=== PATIENT | male | born 1955 ===

== ENCOUNTER 2022-05-06 05:21 | Inpatient (IN) ==
[2022-04-30 12:14] LABS: Basophils % 0.3 % (0.0-0.8); Eosinophils % 0.6 % (0.00-10.9); Hemoglobin 12.2 GM/DL (14.0-18.0); Immature Granulocytes % 1.1 %; Immature Granulocytes Absolute 0.07 #; Lymphocytes # 1.2 10*3/uL (1.4-4.0); Lymphocytes % 18.3 % (21.2-54.2); Mean Corpuscular HGB Conc 33.9 GM/DL (32-36); Mean Corpuscular Volume 93.5 FL (87-102); Mean Platelet Volume 11.1 FL (9.6-12.0); Monocytes # 0.6 10*3/uL (0.11-0.8); Monocytes % 8.5 % (1.7-12.7); Neutrophils % 71.2 % (38.7-73.9); Platelet Count 174 T/CUMM (130-400); Red Blood Count 3.85 MC/CUMM (3.8-5.5); Red Cell Distribution Width 13.9 % (9.3-17.3); White Blood Count 6.44 T/CUMM (4-12)
[2022-04-30 12:30] LABS: Albumin 3.4 G/DL (3.4-5.0); Bilirubin,Total 0.5 MG/DL (0.20-1.00); Calcium 9.2 MG/DL (8.5-10.1); Osmolality,Calculated 279.7 MOS/KG (273-304); Potassium 4.1 MMOL/L (3.5-5.1); Total Protein 7.7 G/DL (6.4-8.2)
[2022-05-06] MEDS: LACTATED RINGERS 1,000 ML IV SCH ×2 (06:18→09:31)
[2022-05-06] MEDS ORDERED: cefTRIAXone 1,000 MG in SODIUM CHLORIDE 0.9% 100 ML IV ONE (06:30)
[2022-05-06] MEDS ORDERED: ALVIMOPAN 12 MG CAPSULE PO ONE (06:30)
[2022-05-06] MEDS ORDERED: ROPIVACAINE 0.5% 30 ML VIAL ONE (06:34)
[2022-05-06 06:39] LABS: INR 0.9; PT Patient Result 10.3 SECS (10.1-12.1); Partial Thromboplastin Time 23.1 SECS (23.7-32.9)
[2022-05-06] MEDS ORDERED: FAMOTIDINE 20 MG TABLET PO ONE (06:41)
[2022-05-06] MEDS ORDERED: buprenorphine HCL 0.3 MG/ML VIAL ONE (06:53)
[2022-05-06] MEDS ORDERED: fentaNYL 100 MCG/2 ML VIAL ONE (06:59)
[2022-05-06] MEDS ORDERED: MIDAZOLAM 2 MG/2 ML VIAL ONE (06:59)
[2022-05-06] MEDS ORDERED: LACTATED RINGERS 1,000 ML IV SCH (07:00)
[2022-05-06] MEDS ORDERED: ePHEDrine 50 MG/ML VIAL ONE (07:58)
[2022-05-06] MEDS ORDERED: propofoL 200 MG/20 ML VIAL IV ONE (08:28)
[2022-05-06] MEDS ORDERED: SEVOFLURANE 1 UNIT/15 MINUTE INH ONE ×14 (08:28→12:31)
[2022-05-06] MEDS ORDERED: GLYCOPYRROLATE 0.4 MG/2 ML VIAL ONE ×2 (08:28→11:38)
[2022-05-06] MEDS ORDERED: ROCURONIUM 50 MG/5 ML VIAL IV ONE (08:28)
[2022-05-06] MEDS ORDERED: LIDOCAINE 2% 5 ML VIAL ONE (08:28)
[2022-05-06] MEDS ORDERED: ONDANSETRON 4 MG/2 ML VIAL ONE (11:33)
[2022-05-06] MEDS ORDERED: LACTATED RINGERS 1,000 ML IV ONE (11:35)
[2022-05-06] MEDS ORDERED: NEOSTIGMINE 10 MG/10 ML VIAL ONE (11:38)
[2022-05-06] MEDS ORDERED: oxyCODONE/ACETAMINOPHEN 5-325 MG TABLET PO PRN (11:48)
[2022-05-06] MEDS ORDERED: PROMETHAZINE 25 MG/1 ML VIAL IM PRN (11:48)
[2022-05-06] MEDS ORDERED: diphenhydrAMINE 50 MG/1 ML VIAL IV PRN (11:48)
[2022-05-06] MEDS ORDERED: ONDANSETRON 4 MG/2 ML VIAL IV PRN (11:48)
[2022-05-06] MEDS ORDERED: SIMETHICONE CHEW 125 MG TABLET PO PRN (11:48)
[2022-05-06] MEDS ORDERED: LACTULOSE 20 GM/30 ML UDCUP PO PRN (11:48)
[2022-05-06] MEDS ORDERED: ALBUTEROL 2.5 MG/3 ML NEB RESP TX PRN (11:51)
[2022-05-06] MEDS ORDERED: PHENYLEPHRINE DRIP 20 MG/250 ML PREMIX IV ONE (12:52)
[2022-05-06 13:33] LABS: Basophils % 0.2 % (0.0-0.8); Eosinophils % 0.1 % (0.00-10.9); Hematocrit 36.8 VOL% (42.0-52.0); Hemoglobin 11.6 GM/DL (14.0-18.0); Immature Granulocytes % 0.4 %; Immature Granulocytes Absolute 0.04 #; Lymphocytes # 1.4 10*3/uL (1.4-4.0); Lymphocytes % 12.7 % (21.2-54.2); Mean Corpuscular HGB Conc 31.5 GM/DL (32-36); Mean Corpuscular Volume 97.1 FL (87-102); Mean Platelet Volume 11.2 FL (9.6-12.0); Monocytes # 0.6 10*3/uL (0.11-0.8); Monocytes % 5.7 % (1.7-12.7); Neutrophils % 80.9 % (38.7-73.9); Platelet Count 67 T/CUMM (130-400); Red Blood Count 3.79 MC/CUMM (3.8-5.5); White Blood Count 11.14 T/CUMM (4-12)
[2022-05-06 13:49] LABS: Mucus,Urine Occasional /LPF (Occasional); RBC,Urine 34 /HPF (0-4); Squamous Epithelial Cell,Urine Occasional /HPF (0-10)
[2022-05-06 13:51] LABS: Bilirubin,Urine Negative (Negative); Blood, Urine Small mg/dL (Negative); Glucose,Urine (UA) Negative (Negative); Ketones,Urine Negative (Negative); Nitrite,Urine Negative (Negative); Protein,Urine Trace mg/dL (Negative); Urine Appearance Clear (Clear); Urine Color Yellow (Yellow); Urine Urobilinogen 0.2 eU/dL (<2.0)
[2022-05-06 13:55] LABS: Calcium 8.8 MG/DL (8.5-10.1); Potassium 4.1 MMOL/L (3.5-5.1)
[2022-05-06] MEDS: HYDROmorphone 1 MG/1 ML SYRINGE IV PRN (14:01)
[2022-05-06] MEDS: SODIUM CHLORIDE 0.9% 1,000 ML IV SCH ×2 (14:02→22:01)
[2022-05-06] MEDS: ACETAMINOPHEN 325 MG TABLET PO SCH ×2 (14:03→17:53)
[2022-05-06] MEDS: OXYBUTYNIN 5 MG TABLET PO SCH ×2 (15:59→21:59)
[2022-05-06] MEDS ORDERED: LORazepam 2 MG/1 ML VIAL IV PRN (16:04)
[2022-05-06] MEDS: ALBUTEROL/IPRATROPIUM 3 ML NEB RESP TX SCH ×2 (19:38→20:57)
[2022-05-06] MEDS: FAMOTIDINE 20 MG TABLET PO SCH (21:59)
[2022-05-06] MEDS: ALVIMOPAN 12 MG CAPSULE PO SCH (21:59)
[2022-05-06] MEDS: DOCUSATE SODIUM 100 MG CAPSULE PO SCH (21:59)
[2022-05-07] MEDS: ALBUTEROL/IPRATROPIUM 3 ML NEB RESP TX SCH ×4 (00:47→18:50)
[2022-05-07] MEDS: ACETAMINOPHEN 325 MG TABLET PO SCH ×5 (01:21→23:44)
[2022-05-07 05:28] LABS: Basophils % 0.3 % (0.0-0.8); Eosinophils # 0.1 10*3/uL (0.0-0.87); Eosinophils % 0.7 % (0.00-10.9); Hematocrit 30.6 VOL% (42.0-52.0); Hemoglobin 9.8 GM/DL (14.0-18.0); Immature Granulocytes % 0.4 %; Immature Granulocytes Absolute 0.03 #; Lymphocytes # 1.6 10*3/uL (1.4-4.0); Lymphocytes % 21.8 % (21.2-54.2); Mean Corpuscular Volume 99.4 FL (87-102); Mean Platelet Volume 10.1 FL (9.6-12.0); Monocytes # 0.7 10*3/uL (0.11-0.8); Monocytes % 9.2 % (1.7-12.7); Neutrophils % 67.6 % (38.7-73.9); Platelet Count 145 T/CUMM (130-400); Red Blood Count 3.08 MC/CUMM (3.8-5.5); Red Cell Distribution Width 14.3 % (9.3-17.3); White Blood Count 7.46 T/CUMM (4-12)
[2022-05-07 05:46] LABS: Calcium 8.1 MG/DL (8.5-10.1); Osmolality,Calculated 275.7 MOS/KG (273-304); Potassium 3.8 MMOL/L (3.5-5.1)
[2022-05-07 05:52] LABS: Folate 15.62 NG/ML (5.38-24.0); Vitamin B12 804 PG/ML (211-911)
[2022-05-07 05:58] LABS: Albumin 2.8 G/DL (3.4-5.0); Bilirubin,Direct 0.23 MG/DL (0.0-0.20); Bilirubin,Indirect 0.4 MG/DL (0.0-1.0); Bilirubin,Total 0.6 MG/DL (0.20-1.00); Total Protein 6.7 G/DL (6.4-8.2)
[2022-05-07] MEDS: SODIUM CHLORIDE 0.9% 1,000 ML IV SCH (06:14)
[2022-05-07 06:34] LABS: Hepatitis B Core IgM Quant 0.06 Index; Hepatitis B Surface Ag Quant < 0.10 Index; Hepatitis B Surface Ag Result Non-Reactive (NonReactive); Hepatitis C Virus Ab Quant 0.07 Index; Hepatitis C Virus Ab Result Non-Reactive (NonReactive)
[2022-05-07 06:43] LABS: Sedimentation Rate-Westergren 65 MM/HR (0-20)
[2022-05-07 07:47] LABS: Hemoglobin A1 (Alkaline) 97.1 % (96.5-98.5); Hemoglobin A2 (Alkaline) 2.9 % (1.5-3.5)
[2022-05-07] MEDS: HYDROmorphone 1 MG/1 ML SYRINGE IV PRN ×2 (07:59→13:33)
[2022-05-07] MEDS: ALVIMOPAN 12 MG CAPSULE PO SCH ×2 (08:00→22:02)
[2022-05-07] MEDS: MULTIVITAMIN (CENTRUM) TABLET PO SCH (08:00)
[2022-05-07] MEDS: DOCUSATE SODIUM 100 MG CAPSULE PO SCH ×2 (08:00→22:01)
[2022-05-07] MEDS: FLUTICASONE 50 MCG NASAL SPRAY 16 GM BOTTLE BOTH NARES SCH (08:00)
[2022-05-07] MEDS: cefTRIAXone 1,000 MG in SODIUM CHLORIDE 0.9% 100 ML IV SCH (08:00)
[2022-05-07] MEDS: OXYBUTYNIN 5 MG TABLET PO SCH ×3 (08:01→22:01)
[2022-05-07] MEDS: FOLIC ACID 1 MG TABLET PO SCH (08:01)
[2022-05-07] MEDS: THIAMINE 100 MG TABLET PO SCH (08:01)
[2022-05-07] MEDS: amLODIPine 5 MG TABLET PO SCH (08:01)
[2022-05-07] MEDS: FAMOTIDINE 20 MG TABLET PO SCH ×2 (08:01→22:02)
[2022-05-07] MEDS ORDERED: LACTULOSE 20 GM/30 ML UDCUP PO ONE (09:08)
[2022-05-07] MEDS ORDERED: SIMETHICONE CHEW 125 MG TABLET PO SCH (09:30)
[2022-05-07] MEDS: POLYETHYLENE GLYCOL POWDER 17 GM PACK PO SCH (17:19)
[2022-05-08] MEDS: ACETAMINOPHEN 325 MG TABLET PO SCH ×3 (06:02→18:43)
[2022-05-08 06:13] LABS: Basophils % 0.2 % (0.0-0.8); Eosinophils % 0.2 % (0.00-10.9); Hematocrit 32.5 VOL% (42.0-52.0); Hemoglobin 10.4 GM/DL (14.0-18.0); Immature Granulocytes % 0.3 %; Immature Granulocytes Absolute 0.03 #; Lymphocytes # 1.4 10*3/uL (1.4-4.0); Lymphocytes % 15.4 % (21.2-54.2); Mean Corpuscular Volume 96.7 FL (87-102); Mean Platelet Volume 10.8 FL (9.6-12.0); Monocytes # 0.7 10*3/uL (0.11-0.8); Monocytes % 7.5 % (1.7-12.7); Neutrophils % 76.4 % (38.7-73.9); Platelet Count 164 T/CUMM (130-400); Red Blood Count 3.36 MC/CUMM (3.8-5.5); Red Cell Distribution Width 14.2 % (9.3-17.3); White Blood Count 9.26 T/CUMM (4-12)
[2022-05-08 06:30] LABS: Albumin 2.9 G/DL (3.4-5.0); Bilirubin,Total 0.5 MG/DL (0.20-1.00); Calcium 8.7 MG/DL (8.5-10.1); Osmolality,Calculated 273.8 MOS/KG (273-304); Potassium 4.1 MMOL/L (3.5-5.1); Total Protein 7.3 G/DL (6.4-8.2)
[2022-05-08 06:43] LABS: % Iron Saturation 14.4 % (18-50)
[2022-05-08] MEDS: ALBUTEROL/IPRATROPIUM 3 ML NEB RESP TX SCH ×4 (07:17→19:01)
[2022-05-08] MEDS ORDERED: DEXTROSE 5% NACL 0.45% 1,000 ML IV SCH (07:30)
[2022-05-08] MEDS: FOLIC ACID 1 MG TABLET PO SCH (09:52)
[2022-05-08] MEDS: ALVIMOPAN 12 MG CAPSULE PO SCH ×2 (09:52→21:30)
[2022-05-08] MEDS: THIAMINE 100 MG TABLET PO SCH (09:52)
[2022-05-08] MEDS: OXYBUTYNIN 5 MG TABLET PO SCH ×3 (09:52→21:30)
[2022-05-08] MEDS: POLYETHYLENE GLYCOL POWDER 17 GM PACK PO SCH (09:52)
[2022-05-08] MEDS: amLODIPine 5 MG TABLET PO SCH (09:52)
[2022-05-08] MEDS: MULTIVITAMIN (CENTRUM) TABLET PO SCH (09:52)
[2022-05-08] MEDS: FAMOTIDINE 20 MG TABLET PO SCH ×2 (09:52→21:30)
[2022-05-08] MEDS: cefTRIAXone 1,000 MG in SODIUM CHLORIDE 0.9% 100 ML IV SCH (09:53)
[2022-05-08] MEDS: SODIUM CHLOR 0.45% KCL 20 MEQ 20 MEQ/1,000 ML BAG IV SCH ×2 (09:53→17:41)
[2022-05-08] MEDS: DOCUSATE SODIUM 100 MG CAPSULE PO SCH ×2 (09:54→21:30)
[2022-05-08] MEDS: FLUTICASONE 50 MCG NASAL SPRAY 16 GM BOTTLE BOTH NARES SCH (09:54)
[2022-05-08] MEDS: METOCLOPRAMIDE 10 MG/2 ML VIAL IV SCH ×2 (12:38→17:37)
[2022-05-09] MEDS: ALBUTEROL/IPRATROPIUM 3 ML NEB RESP TX SCH ×3 (00:24→14:00)
[2022-05-09] MEDS: ACETAMINOPHEN 325 MG TABLET PO SCH ×3 (00:40→12:09)
[2022-05-09] MEDS: SODIUM CHLOR 0.45% KCL 20 MEQ 20 MEQ/1,000 ML BAG IV SCH ×2 (00:56→09:33)
[2022-05-09] MEDS: METOCLOPRAMIDE 10 MG/2 ML VIAL IV SCH ×3 (00:57→12:09)
[2022-05-09 05:35] LABS: Basophils % 0.2 % (0.0-0.8); Eosinophils # 0.1 10*3/uL (0.0-0.87); Eosinophils % 1.2 % (0.00-10.9); Hematocrit 27.6 VOL% (42.0-52.0); Hemoglobin 8.8 GM/DL (14.0-18.0); Immature Granulocytes % 0.7 %; Immature Granulocytes Absolute 0.06 #; Lymphocytes # 1.2 10*3/uL (1.4-4.0); Lymphocytes % 14.6 % (21.2-54.2); Mean Corpuscular HGB Conc 31.9 GM/DL (32-36); Mean Corpuscular Volume 96.5 FL (87-102); Mean Platelet Volume 10.2 FL (9.6-12.0); Monocytes # 0.7 10*3/uL (0.11-0.8); Monocytes % 8.7 % (1.7-12.7); Neutrophils % 74.6 % (38.7-73.9); Platelet Count 165 T/CUMM (130-400); Red Blood Count 2.86 MC/CUMM (3.8-5.5); Red Cell Distribution Width 14.4 % (9.3-17.3)
[2022-05-09 05:52] LABS: Albumin 2.4 G/DL (3.4-5.0); Bilirubin,Total 0.5 MG/DL (0.20-1.00); Calcium 8.4 MG/DL (8.5-10.1); Osmolality,Calculated 275.5 MOS/KG (273-304); Total Protein 6.2 G/DL (6.4-8.2)
[2022-05-09] MEDS: cefTRIAXone 1,000 MG in SODIUM CHLORIDE 0.9% 100 ML IV SCH (09:03)
[2022-05-09] MEDS: FAMOTIDINE 20 MG TABLET PO SCH (09:04)
[2022-05-09] MEDS: POLYETHYLENE GLYCOL POWDER 17 GM PACK PO SCH (09:04)
[2022-05-09] MEDS: FOLIC ACID 1 MG TABLET PO SCH (09:04)
[2022-05-09] MEDS: OXYBUTYNIN 5 MG TABLET PO SCH (09:04)
[2022-05-09] MEDS: MULTIVITAMIN (CENTRUM) TABLET PO SCH (09:04)
[2022-05-09] MEDS: ALVIMOPAN 12 MG CAPSULE PO SCH (09:04)
[2022-05-09] MEDS: THIAMINE 100 MG TABLET PO SCH (09:04)
[2022-05-09] MEDS: amLODIPine 5 MG TABLET PO SCH (09:05)
[2022-05-09] MEDS: FLUTICASONE 50 MCG NASAL SPRAY 16 GM BOTTLE BOTH NARES SCH (09:05)
[2022-05-09] MEDS: DOCUSATE SODIUM 100 MG CAPSULE PO SCH (09:05)
[2022-05-09 12:03] VITALS: BP 153/81
== END 2022-05-09 15:19 | disposition home or self-care (01) | DRG 707 ==
LOC: N.SDSINP 05:21 → N.3E 13:33
PROVIDERS: ADMIT Surgery; ATTEND Surgery